=== PATIENT | female | born 1980 | race Caucasian/White ===

== ENCOUNTER 2017-07-16 13:11 | Emergency (ER) | payer OTHER ==
--- NOTE | 2017-07-16 13:53 | RAD ---
PA AND LATERAL CHEST X-RAY: 07/16/2017 HISTORY: Difficulty breathing. Dyspnea. Congestion. COMPARISON: 05/23/2015 FINDINGS: The cardiac silhouette and pulmonary vasculature are within normal limits. The lungs remain clear. There has been no interval change when compared to the prior exam. IMPRESSION: No acute cardiopulmonary process. POS: [facility]
[2017-07-16] MEDS ORDERED: Acetaminophen 500 MG TAB ONE (14:17)
== END 2017-07-16 14:21 | disposition home or self-care (01) ==
LOC: NAV ERS 13:11
DX: J45.901 Unspecified asthma with (acute) exacerbation (principal); B34.9 Viral infection, unspecified; Z79.899 Other long term (current) drug therapy
CPT/HCPCS: 71046; 94640; J7620